=== PATIENT | female | born 1975 | race Caucasian/White ===

== ENCOUNTER → 2017-02-07 | Outpatient (CLI) | payer MEDICARE ==
[~2017-02-07] MED LIST: BUSP15TA PO; DEXT10TA7 PO; DICL50TA2 PO; FLUO10CA13 PO; METH-356 PO; OXYC-307 PO; RISP3TAB24 PO; TRAM50TA2 PO
[2017-02-07 12:52] LABS: HEMATOCRIT 43.2 % (34.6-47.8); HEMOGLOBIN 14.5 g/dL (11.7-16.4); WHITE BLOOD COUNT 5.6 x10^3/uL (3.4-10)
[2017-02-07 13:04] LABS: ASPARTATE AMINO TRANSFERASE 14 U/L (15-37); BLOOD UREA NITROGEN 12 mg/dL (7-18)
== END | disposition home or self-care (01) ==
LOC: CFH 10:59
PROVIDERS: ATTEND Internal Medicine Cardiovascular Disease
DX: I48.0 Paroxysmal atrial fibrillation (principal)
CPT/HCPCS: 36415; 80053; 84436; 84443; 84481; 85025

== ENCOUNTER 2017-10-06 01:42 | Emergency (ER) | payer MEDICARE ==
[~2017-10-06] VITALS: Ht 160 cm; Wt 61.8 kg
[2017-10-06] MEDS ORDERED: AMPH20TA2 PO (01:54)
[2017-10-06] MEDS ORDERED: LIDOCAINE PATCH TD (01:54)
[2017-10-06] MEDS ORDERED: OXYC15TA PO (01:54)
[2017-10-06] MEDS ORDERED: DIPHENHYDRAMINE 50 MG/ML, 1ML IVPush ONE (03:30)
[2017-10-06] MEDS ORDERED: SODIUM CHLORIDE 0.9% 1,000ML IVBOLUS ONE (03:30)
[2017-10-06] MEDS ORDERED: SODIUM CHLORIDE FLUSH 10ML SYR IVF ONE (03:30)
[2017-10-06] MEDS ORDERED: METOCLOPRAMIDE 5 MG/ML, 2ML IVPush ONE (03:30)
[2017-10-06] MEDS ORDERED: METOCLOPRAMIDE 5 MG/ML, 2ML ONE (03:40)
[2017-10-06] MEDS ORDERED: DIPHENHYDRAMINE 50 MG/ML, 1ML ONE (03:40)
[2017-10-06 04:51] VITALS: BP 104/62
== END 2017-10-06 05:01 | disposition home or self-care (01) ==
LOC: ED 03:49
DX: G43.009 Migraine without aura, not intractable, without status migrainosus (principal); F17.200 Nicotine dependence, unspecified, uncomplicated; I48.91 Unspecified atrial fibrillation; G89.29 Other chronic pain; M54.9 Dorsalgia, unspecified
CPT/HCPCS: 93005; 96374; 96375; 99284; J1200; J2765; J7030

== ENCOUNTER 2020-06-24 07:56 | Emergency (ER) | payer MEDICARE ==
[~2020-06-24] VITALS: Ht 160 cm; Wt 68.4 kg
[~2020-06-24 07:56] MED LIST changes: +AMPH20TA2 PO; +AMPH30CA6 PO; +CYCL10TA2 PO; +IBUP-1223 PO; +LIDOCAINE PATCH TD; -METH-356 PO; +METH10TA2 PO; -OXYC-307 PO; +OXYC-380 PO; +OXYC15TA3 PO; +RANI-460 PO; +TAPE50TA11 PO
[2020-06-24 08:06] VITALS: BP 140/64
[2020-06-24] MEDS ORDERED: OXYcodone/APAP 5/325MG TABLET PO ONE (09:00)
[2020-06-24] MEDS ORDERED: OXYcodone/APAP 5/325MG TABLET ONE (09:00)
--- NOTE | 2020-06-24 09:04 | NUR ---
PT TO ROOM 5 W/ C/O R ANKLE PAIN STARTED LAST NIGHT. PT STATES SHE TWISTED HER ANKLE YESTERDAY BUT FELT NO PAIN AT THE TIME. PT NOW C/O PAIN 10/10 WHEN UTILIZING IT. 5/10 AT REST. PT RESTING ON [place]. [place].
--- NOTE | 2020-06-24 09:37 | NUR ---
PT CHART REVIEWED AND PLACED FOR RECHECK.
== END 2020-06-24 10:23 | disposition home or self-care (01) ==
LOC: ED 09:14
DX: M79.671 Pain in right foot (principal); I48.91 Unspecified atrial fibrillation; G43.909 Migraine, unspecified, not intractable, without status migrainosus; Z88.9 Allergy status to unspecified drugs, medicaments and biological substances
CPT/HCPCS: 99284

== ENCOUNTER 2020-06-25 08:02 | Emergency (ER) | payer MEDICARE ==
[~2020-06-25] VITALS: Ht 160 cm; Wt 68.6 kg
[2020-06-25 08:09] VITALS: BP 114/69
[2020-06-25] MEDS ORDERED: KETOROLAC 30 MG/1 ML IM ONE (08:30)
[2020-06-25] MEDS ORDERED: HYDROcodone/APAP 5/325 TABLET PO ONE (08:30)
--- NOTE | 2020-06-25 08:31 | NUR ---
RIGHT FOOT IN AIR SPLINT AND USING CRUTCHES. STATES FOOT PAIN FOR TWO DAYS AND THAT IT WAS THROBBING ALL NIGHT. SEEN HERE YESTERDAY.
[2020-06-25] MEDS ORDERED: KETOROLAC 60 MG/2 ML ONE (08:40)
[2020-06-25 09:15] LABS: BASOPHILS % (AUTO) 0 % (0-1); EOSINOPHILS % (AUTO) 8 % (1-7); LYMPHOCYTES % (AUTO) 31 % (22-44); MEAN CORPUSCULAR HEMOGLOBIN 30.3 pg (27.0-34.8); MEAN CORPUSCULAR HGB CONC 34.5 g/dL (32.4-35.8); MEAN PLATELET VOLUME 8.3 fL (7.4-10.4); MONOCYTES % (AUTO) 5 % (2-9); NEUTROPHILS % (AUTO) 56 % (42-75); PLATELET COUNT 264 x10^3/uL (130-400); RED BLOOD COUNT 4.82 x10^6/uL (3.82-5.3); RED CELL DISTRIBUTION WIDTH 13.7 % (9.6-15.2)
[2020-06-25 09:18] LABS: MD NO
[2020-06-25 09:20] LABS: ALANINE AMINOTRANSFERASE 35 U/L (12-78); ALBUMIN 4.2 g/dL (3.4-5.0); ANION GAP 6 mmol/L (5-15); CHLORIDE 109 mmol/L (98-107); CREATININE 0.75 mg/dL (0.55-1.02)
[2020-06-25 09:22] LABS: ALKALINE PHOSPHATASE 112 U/L (45-117); BILIRUBIN,TOTAL 0.3 mg/dL (0.2-1.0); TOTAL PROTEIN 7.5 g/dL (6.4-8.2)
--- NOTE | 2020-06-25 09:22 | NUR ---
FIRST CONTACT WITH PATIENT DUE TO PATIENT CARE: PATIENT SITTING IN [facility] ON PHONE, NADN, CALL LIGHT WITHIN REACH, NO FURTHER NEEDS AT THIS TIME. WAITING FOR LABS TO RESULT.
--- NOTE | 2020-06-25 09:46 | NUR ---
ERMD AT BEDSIDE TO DISCUSS POC.
[2020-06-25] MEDS ORDERED: HYDROcodone/APAP 5/325 TABLET ONE (10:08)
--- NOTE | 2020-06-25 10:13 | NUR ---
PATIENT REQUESTING PAIN MEDICINE, 5/325 MG NORCO ORDERED. PULLED AND WENT TO GIVE MEDICATION TO PATIENT, PATIENT STATES "I TAKE 10'S AT HOME, I TAKE 5 10 MG TABLETS AT HOME EVERY DAY, HOW DARE YOU GIVE ME 5 MG, WHY IS THE DOCTOR GIVING ME HALF OF WHAT I TAKE AT HOME." SHADY NOTIFIED.
--- NOTE | 2020-06-25 10:22 | NUR ---
ER PROVIDER SPOKE WITH PATIENT, PATIENT IS REFUSING 5/325 MG NORCO TABLET.
--- NOTE | 2020-06-25 10:38 | NUR ---
Patient dressed and vitals monitoring equipment taken off by patient, refusing last set of vitals, given discharge instructions, referral to [facility] and prescription and they have confirmed that they understand the instructions. Patient ambulatory with use of crutches from ED to private vehicle.
== END 2020-06-25 10:39 | disposition home or self-care (01) ==
LOC: ED 10:30
DX: G89.11 Acute pain due to trauma (principal); M25.571 Pain in right ankle and joints of right foot; I48.91 Unspecified atrial fibrillation; G43.909 Migraine, unspecified, not intractable, without status migrainosus; Z88.1 Allergy status to other antibiotic agents; Z88.6 Allergy status to analgesic agent; X58.XXXA Exposure to other specified factors, initial encounter; Y93.89 Activity, other specified; Y92.89 Other specified places as the place of occurrence of the external cause; Y99.8 Other external cause status
CPT/HCPCS: 36415; 80053; 84550; 85025; 96372; 99283; J1885

== ENCOUNTER 2020-07-07 13:17 | Outpatient (CLI) | payer MEDICARE | END 2020-07-07 23:59 | disposition home or self-care (01) | LOC: CFH 13:17 | PROVIDERS: ATTEND Physician Assistant | DX: N64.4 Mastodynia (principal) | CPT/HCPCS: 76642; 77062; 77066; G0279 ==

== ENCOUNTER → 2020-08-01 | Outpatient (CLI) | payer MEDICARE | END | disposition home or self-care (01) | LOC: CFH 12:20 | PROVIDERS: ATTEND Otolaryngology | DX: J34.2 Deviated nasal septum (principal); J34.89 Other specified disorders of nose and nasal sinuses; J32.0 Chronic maxillary sinusitis; J31.0 Chronic rhinitis | CPT/HCPCS: 70486 ==